=== PATIENT | male | born 1970 | race Two or more races ===

== ENCOUNTER 2016-11-25 10:57 | Day surgery (SDC) | payer OTHER ==
[~2016-11-25 10:57] MED LIST: LACTATED RINGERS 1,000 ML IV SCH
[2016-11-25] MEDS ORDERED: LACTATED RINGERS 1,000 ML ONE (11:03)
[2016-11-25] MEDS ORDERED: IV START KIT ONE (11:03)
[2016-11-25] MEDS ORDERED: SODIUM CHLORIDE 0.9% 1,000 ML ONE (11:23)
[2016-11-25] MEDS ORDERED: SODIUM CHLORIDE 0.9% 1,000 ML IV SCH (11:30)
[2016-11-25] MEDS ORDERED: PROPOFOL 20 ML IV ONE (11:44)
[2016-11-25 16:21] LABS: HELICOBACTER PYLORII DETECTION NEGATIVE (NEGATIVE)
--- NOTE | 2016-11-27 09:33 | SURGPATH ---
[facility] [address] [place] [id number] Patient Name: PHILIP SANCHEZ MR#: [id number] : 1970 Gender: M Specimen #: [id number] Collected: 11/25/2016 Received: 11/26/2016 Reported: 11/27/2016 Submitting Phys: ATIF HARP Copy To Phys: [facility] CAR[facility] ALEXSANDER GIFFORD Clinical History / Pre-Operative Diagnosis: ABDOMINAL PAIN WITH HISTORY OF GASTRIC H. PYLORI; RULE OUT GIARDIA, CELIAC SPRUE AND GASTRITIS Specimen Source / Surgical Procedure Performed: #1-DUODENAL BIOPSY; #2-ANTRAL BIOPSY Interpretation: 1. DUODENUM, BIOPSY: - SMALL BOWEL MUCOSA SHOWING NO DIAGNOSTIC ABNORMALITIES. - NO EVIDENCE OF CELIAC DISEASE. - NO EVIDENCE OF SIGNIFICANT INFLAMMATION, VILLOUS BLUNTING, OR MALIGNANCY. 2. GASTRIC ANTRUM, BIOPSY: - MILD CHRONIC GASTRITIS. - NO MICROORGANISMS IDENTIFIED WITH ROUTINE STAINING. - NO EVIDENCE OF ACUTE INFLAMMATION, INTESTINAL METAPLASIA, OR MALIGNANCY. Electronically Signed Out Mauri Porter M.D., Ph.D. Gross Description: #1 The specimen is received in a formalin filled container labeled with the patient's name and "duodenal biopsy". A single puckett biopsy is 0.5 cm. Totally embedded in cassette #1. #2 The specimen is received in a formalin filled container labeled with the patient's name and "antral biopsy". A single puckett biopsy is 0.5 cm. Totally embedded in cassette #2. Tristan Ross, P.A. Microscopic Description: 1. Examination of multiple levels from the duodenum biopsy shows a single fragment of histologically unremarkable small bowel mucosa. The villous architecture is intact without evidence of blunting. There is no evidence of increased intraepithelial lymphocytes. There is no evidence of significant inflammation or malignancy. 2. Examination of multiple levels from the gastric antrum biopsy shows a single fragment of gastric mucosa with expansion of the lamina propria by a mixed inflammatory cell infiltrate consisting of lymphocytes, plasma cells, and occasional eosinophils. No neutrophils are seen. No microorganisms identified with routine staining. There is no evidence of intestinal metaplasia or malignancy. 1: 33410 2: 72251 K29.50
== END 2016-11-25 12:42 | disposition home or self-care (01) ==
LOC: SDC 10:57
PROVIDERS: ATTEND Internal Medicine Gastroenterology
PROC: 0DB98ZX Excision of Duodenum, Via Natural or Artificial Opening Endoscopic, Diagnostic (ICD-10-PCS; principal; 2016-11-25)
PROC: 0DB68ZX Excision of Stomach, Via Natural or Artificial Opening Endoscopic, Diagnostic (ICD-10-PCS; 2016-11-25)
DX: K29.50 Unspecified chronic gastritis without bleeding (principal); K29.80 Duodenitis without bleeding; F17.210 Nicotine dependence, cigarettes, uncomplicated; E11.9 Type 2 diabetes mellitus without complications; E78.5 Hyperlipidemia, unspecified; M79.1 Myalgia
CPT/HCPCS: 87081; 43239; J7120; J7030